=== PATIENT | male | born 1990 | race African-American/Black ===

== ENCOUNTER 2019-09-29 19:16 | Emergency (ER) | payer OTHER ==
[~2019-09-29] VITALS: Ht 193 cm; Wt 72.6 kg
[~2019-09-29 19:16] MED LIST: IBUPROFEN 800800 MG PO; KEFLEX500 MG PO
[2019-09-29 19:20] VITALS: BP 133/73
[2019-10-01 18:07] LABS: SYPHILIS AB Non Reactive (Non Reactive)
== END 2019-09-29 21:40 | disposition home or self-care (01) ==
LOC: ER 19:16
PROVIDERS: Nurse Practitioner
DX: S20.212A Contusion of left front wall of thorax, initial encounter (principal); Z20.2 Contact with and (suspected) exposure to infections with a predominantly sexual mode of transmission; J45.909 Unspecified asthma, uncomplicated; F17.210 Nicotine dependence, cigarettes, uncomplicated; W18.39XA Other fall on same level, initial encounter; Y93.89 Activity, other specified; Y92.89 Other specified places as the place of occurrence of the external cause; Y99.8 Other external cause status